=== PATIENT | male | born 1985 | race Two or more races ===

== ENCOUNTER 2024-10-18 16:11 | Emergency (ER) | payer MEDICAID, SELFPAY ==
[2024-10-18 16:30] VITALS: BP 130/81; PULSE 72; RESP 19; TEMP 37.1; O2SAT 97; BMI 26.6
--- NOTE | 2024-10-18 16:40 | XR_ITS ---
Examination: Shoulder,left, 3 views Technique: Shoulder AP internal rotation, AP external rotation, Y view shoulder, 3 views Exam date and time :October 18, 2024 1653 hours INDICATIONS: Injury to the shoulder 2 days ago, shoulder pain FINDINGS: No shoulder fracture or dislocation 2 mm AC joint offset No foreign body IMPRESSION: No fracture 2 mm AC joint offset, consider weightbearing bilateral AC joint views follow-up
--- NOTE | 2024-10-18 17:18 | EDNOTE_ITS ---
<Statement entered by Gertrudis Lee MD - 10/27/24 18:12> As co-signing physician, I was present and available for consult prn. I concur with the plan and care as documented by the midlevel provider. Upper Extremity Injury RME/HPI General Chief Complaint: Extremity Injury, Upper Stated Complaint: INJURY LEFT SHOULDER/NOW PAIN x 2 DAYS Time Seen by Provider: 10/18/24 16:32 Source: patient Arrival date/time: 10/18/24 16:11 This is a 38-year-old male who presents to the emergency department with complaints of anterior left shoulder pain for 2 days. He does endorse he was horse playing with his when he accidentally fell onto the floor landing on his left shoulder since then he has been having pain and unable to raise arm due to pain. Patient did not attempt any interventions or take any OTC medications prior to ED visit. Patient denies any other associated symptoms or aggravating factors. No modifying factors, no radiation, no migration. Denies any other injuries no head or neck pain Mode of arrival: ambulatory Related Data Previous Rx's ?Medication ?Instructions ?Recorded naproxen 500 mg tablet (Naprosyn) 500 mg PO BID PRN pain #30 tabs 01/04/22 ibuprofen 600 mg tablet 600 mg PO TID PRN pain #30 tabs 02/07/23 ibuprofen 800 mg tablet (IBU) 800 mg PO Q8H #20 tabs 10/18/24 Allergies Allergy/AdvReac Type Severity Reaction Status Date / Time pork derived (porcine) AdvReac Severe chest Verified 10/18/24 16:14 tightness Review of Systems Review of Systems Systems Reviewed: All systems reviewed, normal except as documented Narrative Review of Systems: Gen: No fever, no chills, no weight loss EYES: No discharge, no visual changes, no pain HEENT: No ear pain, no congestion, no sore throat PULM: No shortness of breath, no cough, no congestion CV: No chest pain, no dyspnea on exertion, no palpitations GI: No nausea, no vomiting, no diarrhea, no pain, no constipation : No frequency, no urgency,? no dysuria Musc/skel: +joimt pain, no back pain Skin: No rash? ED Exam Narrative Physical exam: General: Sittiing in Exam table in no acute distress, answering questions appropriately HENT: normocephalic, atraumatic, EOMI, PERRLA, moist mucous membranes Chest: chest wall is nontender Cardiac: regular rate and rhythm, normal S1 and S2, no murmurs, rubs, or gallops, capillary refill ?2 seconds Pulmonary: clear to auscultation bilaterally, no wheezing, crackles, or rhonchi Abdominal: active bowel sounds, soft, nontender, nondistended Neuro: A&OX3, CN II-XII intact, sensation grossly intact bilaterally in UE and LE. Skin: no rashes, no ecchymosis Ext: left upper anterior shoulder tenderness to palpation unable to abduct and adduct. no visible shoulder dislocation Course Quality Measures none Orders Category Date Time Status sling [Splint / Immobilizer] STAT Care 10/18/24 17:27 Completed XR shoulder LT min 2V Stat Exams 10/18/24 16:40 Completed Vital Signs Vital signs: Vital Signs Temperature 98.8 F 10/18/24 16:30 Pulse Rate 72 10/18/24 16:30 Respiratory Rate 19 10/18/24 16:30 Blood Pressure 130/81 10/18/24 16:30 Pulse Oximetry (%) 97 10/18/24 16:30 Oxygen Delivery Method Room Air 10/18/24 16:30 Extremity Injury MDM Narrative MDM Narrative:: Patient has an AC separation grade 2 and will be discharged home. There is no skin tenting and distal neurovascular exams are appropriate. Patient has currently been stabilized in the emergency department. Patient has been given a sling to wear. Patient understands that they may require outpatient surgery. Patient?s symptoms not typical for other emergent conditions such as shoulder dislocation, arterial injury. Patient will be discharged with strict return precautions and advice to follow up with primary MD within 24 hours for further evaluation. Patient data External records reviewed:: [facility] previous records Clinical information provided by:: patient Social determinants that could affect healthcare access:: none Patient has the following chronic illnesses:: none How is presenting disease/condition affected by chronic disease/condition?: no chronic disease Evaluation data The following diagnostics were reviewed and interpreted by me:: radiology exam(s) Lab and/or radiology exams considered but not ordered:: none Interpretation Summary: Examination: Shoulder,left, 3 views Technique: Shoulder AP internal rotation, AP external rotation, Y view shoulder, 3 views Exam date and time :October 18, 2024 1653 hours INDICATIONS: Injury to the shoulder 2 days ago, shoulder pain FINDINGS: No shoulder fracture or dislocation 2 mm AC joint offset No foreign body IMPRESSION: No fracture 2 mm AC joint offset, consider weightbearing bilateral AC joint views follow-up Medications / Prescriptions Medications or Prescriptions considered but not ordered:: none Medication administrations:: none Consultations Consultation(s) initiated? (list below): No Diagnosis Upper Extremity Injury Differential Diagnosis: dislocation of shoulder, fracture of humerus and fracture of clavicle Most likely diagnosis given after review of the tests above:: AC separation, type 2 Admission Indicated Admission indicated?: not indicated Explain why admission is indicated or not indicated:: none Admission Request Was there a request for admission?: No Disposition Plan Disposition Plan: Discharge Discharge Attestation Discharge Attestation: The patient and all family members were given an opportunity to ask questions and understood the discharge instructions. Discharge instructions specifically effects, indications for sooner follow up or return to the emergency department, and the expected course of current diagnosis. Patient condition: Stable Discharge Plan Plan Patient Disposition: HOME (Self Care) Patient condition on transfer: Stable Prescriptions/Referrals Prescriptions/Med Rec: New ibuprofen [IBU] 800 mg tablet 800 mg PO Q8H Qty: 20 0RF No Action naproxen [Naprosyn] 500 mg tablet 500 mg PO BID PRN (Reason: pain) Qty: 30 0RF ibuprofen 600 mg tablet 600 mg PO TID PRN (Reason: pain) Qty: 30 0RF Referrals: Tenzin Reyna MD [Primary Care Provider] - In 1 week Problem List Clinical Impression: AC separation, type 2 Patient/Caregiver Discharge Instructions Discharge Activity: activity as tolerated Education Materials: Treatment for Shoulder Separation Additional Instructions: Please continue to use the sling as directed. You will need to see your primary doctor for further care. You might need an MRI of your shoulder which can be done outpatient basis. Orthopedic referral, or physical therapy. Can take [id number] ibuprofen as directed for pain. Return to the emergency department this any worsening symptoms or change in condition. Print Language: Kyrgyz Stand Alone Forms: Deanne Award Info., Patient Portal Info Letter RAY/AISHA Supervising Physician RAY/AIHSA Supervising Physician: Dr. Parmar
== END 2024-10-18 18:55 | disposition home or self-care (01) ==
PROVIDERS: Emergency Provider Emergency Medicine; PCP Family Medicine
DX: S43.102A Unspecified dislocation of left acromioclavicular joint, initial encounter (principal); W19.XXXA Unspecified fall, initial encounter; Y93.83 Activity, rough housing and horseplay
CPT/HCPCS: 73030; 99283

== ENCOUNTER 2024-11-06 22:58 | Emergency (ER) | payer MEDICAID, SELFPAY ==
[2024-11-06 23:15] VITALS: BP 158/84; PULSE 84; RESP 19; TEMP 36.9; O2SAT 98; BMI 25.0
--- NOTE | 2024-11-07 | PD.EDRME ---
Rapid Medical Screening Exam [facility] Arrival date/time: 11/06/24 22:58 38-year-old male presents to the emergency department complaining of low back pain that started earlier today after he was walking to his family member's house. Patient denies any injury or fall. Patient describes pain as a burning pain that radiates down to bilateral lower extremities. Chief Complaint: Extremity Injury, Upper Time Seen by Provider: 11/06/24 23:14 Vital signs: Vital Signs Temperature 98.5 F 11/06/24 23:15 Pulse Rate 84 11/06/24 23:15 Respiratory Rate 19 11/06/24 23:15 Blood Pressure 158/84 H 11/06/24 23:15 Pulse Oximetry (%) 98 11/06/24 23:15 Oxygen Delivery Method Room Air 11/06/24 23:15 Vital signs reviewed by provider: Yes
--- NOTE | 2024-11-07 00:02 | XR_ITS ---
Examination: CT lumbar spine, without contrast. 2-D sagittal reconstructions. 2-D coronal reconstructions. 3-D reconstructions. Date and time of exam:November 07, 2024 at 0022 hours INDICATIONS: Injury to lower back today, lower back pain CTDI: vol (mGy):14.75 DLP: (mGycm):532 Technique: Multiple 1.25 mm axial sections of the lumbar spine without intravenous contrast have been obtained. 2-D sagittal and coronal reconstructions have been obtained. 3-D reconstructions have been obtained. Low dose protocols were performed. One or more of the following dose reduction techniques were used; automated exposure control, adjustment of the mA and/or KV according to patient size, use of iterative reconstruction technique. Findings: Adequate bone density. No lumbar vertebral body fracture No significant lumbar disc narrowing No spondylolisthesis Lumbar pedicles laminae transverse and posterior spinous processes are intact Axial images demonstrate no focal lumbar disc protrusion IMPRESSION: No lumbar fracture Axial images demonstrate no focal lumbar disc protrusion If low back pain persists, recommend MRI lumbar spine without contrast follow-up
[2024-11-07] MEDS: CYCLObenzaPRINE 5 MG TABLET PO (00:30)
[2024-11-07] MEDS: KETOROLAC INJ 60 MG/2 ML VIAL 30 MG IM (00:30)
[2024-11-07 00:43] LABS: Collection Type, Urine Clean Catch; Squamous Epithelial Cell,Urine 0 /hpf (0-5)
[2024-11-07 00:54] LABS: Bacteria,Urine Rare; Bilirubin,Urine Negative (Negative); Blood,Urine 2+ (Negative); Clarity,Urine Clear (Clear/Hazy); Color,Urine Yellow (Lt Yel-Yel); Culture Indicated,Urine Not Indicated; Glucose, Urine Negative (Negative); Ketones,Urine 1+ (Negative); Leukocyte Esterase,Urine Negative (Negative); Nitrite,Urine Negative (Negative); Protein,Urine Trace (Neg - Trace); RBC,Urine 4 /hpf (0-3); Specific Gravity,Urine 1.026 (1.001-1.035); Urobilinogen,Urine Negative mg/dL (0.0-1.0); WBC,Urine 3 /hpf (0-5)
--- NOTE | 2024-11-07 00:58 | PRELIM_ITS ---
CT SCAN OF THE LUMBAR SPINE. November 07, 2024 0021 hours Clinical History: Back pain Technique: Axial sections with sagittal and coronal reformats through the lumbar spine are obtained without intravenous contrast. 3D reconstructed images were also provided. Radiation Dose: Total exam DLP 532 mGy/cm. Comparison: No prior study is available for comparison. Findings: There is minimal retrolisthesis of L1 over L2. The vertebral bodies are unremarkable. There is no fracture. No destructive bony lesion. The pre and paravertebral soft tissues are unremarkable. T12-L1: The disc height is within normal limits. There is no significant disc herniation, central canal or neural foraminal narrowing. The facet joints and ligamentum flavum are within normal limits. L1-L2: The disc height is mildly decreased with small marginal osteophytes. There is no disc herniation, central canal or neural foraminal narrowing. The facet joints and ligamentum flavum are within normal limits. L2-L3 and L3-L4: The disc height is within normal limits. There is no disc herniation, central canal or neural foraminal narrowing. The facet joints and ligamentum flavum are within normal limits. L4-L5 and L5-S1: The disc height is within normal limits. There is no disc herniation, central canal or neural foraminal narrowing. Mild bilateral facet hypertrophy is seen. IMPRESSION: 1. No focal bony destructive pathology identified. 2. No focal disc herniation or significant spinal canal or neural foraminal narrowing identified. 3. Other findings as described above. Suggest clinical correlation and follow up accordingly. Report Electronically Signed By: Yasmany Luzt 11/07/2024 12:58:30 AM [EST]
[2024-11-07 01:01] LABS: Amphetamine/Methamp Scrn,U Negative (Negative); Barbiturate Screen,Urine Negative (Negative); Benzodiazepines Screen,Urine Negative (Negative); Benzoylecgonine Screen, Ur Negative (Negative); Fentanyl Screen,Urine Negative (Negative); Opiate Screen,Urine Negative (Negative); THC Screen,Urine Positive (Negative)
--- NOTE | 2024-11-07 01:38 | PD.EDBACK ---
ED Back Injury Pain RME/HPI General Chief Complaint: Extremity Injury, Upper Stated Complaint: Left shoulder pain, right lower back Time Seen by Provider: 11/06/24 23:14 Source: patient Arrival date/time: 11/06/24 22:58 38-year-old male presents to the emergency department complaining of low back pain that started earlier today after he was walking to his family member's house. Patient denies any injury or fall. Patient describes pain as a burning pain that radiates down to bilateral lower extremities. Mode of arrival: ambulatory Limitations: no limitations RME / HPI RME / HPI Narrative: 11/06/24 22:58 38-year-old male presents to the emergency department complaining of low back pain that started earlier today after he was walking to his family member's house. Patient denies any injury or fall. Patient describes pain as a burning pain that radiates down to bilateral lower extremities. Related Data Previous Rx's ?Medication ?Instructions ?Recorded naproxen 500 mg tablet (Naprosyn) 500 mg PO BID PRN pain #30 tabs 01/04/22 ibuprofen 600 mg tablet 600 mg PO TID PRN pain #30 tabs 02/07/23 ibuprofen 800 mg tablet (IBU) 800 mg PO Q8H #20 tabs 10/18/24 ibuprofen 600 mg tablet 600 mg PO Q8H PRN pain #20 tabs 11/07/24 Allergies Allergy/AdvReac Type Severity Reaction Status Date / Time pork derived (porcine) AdvReac Severe chest Verified 10/18/24 16:14 tightness Review of Systems Review of Systems Systems Reviewed: All systems reviewed, normal except as documented Constitutional Constitutional: Reports system reviewed and no additional complaints, except as documented, Denies body ache(s), Denies chills and Denies fever(s) Eyes Eyes: Reports system reviewed and no additional complaints, except as documented and Denies change in vision ENT Ears, Nose, Mouth, and Throat: Reports system reviewed and no additional complaints, except as documented, Denies disequilibrium, Denies dizziness, Denies sore throat and Denies vertigo Cardiovascular Cardiovascular: Reports system reviewed and no additional complaints, except as documented, Denies chest pain and Denies dyspnea Respiratory Respiratory: Reports system reviewed and no additional complaints, except as documented, Denies chest congestion, Denies cough and Denies dyspnea Gastrointestinal Gastrointestinal: Reports system reviewed and no additional complaints, except as documented, Denies abdominal pain, Denies nausea and Denies vomiting Musculoskeletal Musculoskeletal: Reports system reviewed and no additional complaints, except as documented, Denies abnormal gait, Denies arthralgias and Reports back pain Integumentary/Breasts Skin/Breast: Reports system reviewed and no additional complaints, except as documented, Denies erythema, Denies rash and Denies wounds Neurologic Neurologic: Reports system reviewed and no additional complaints, except as documented, Denies abnormal gait, Denies disequilibrium, Denies dizziness and Denies vertigo Past Medical History Past Medical History CARDIAC: Positive Hypertension; Negative Congestive Heart Failure RESPIRATORY: Positive Asthma; Negative Chronic Obstructive Pulmonary Disease (COPD) GENITOURINARY: Negative Renal Disease ENDOCRINE: Negative Diabetes Mellitus Type 1 or Diabetes Mellitus Type 2 Social History SMOKING STATUS: Never smoker SUBSTANCE USE: does not use ED Exam General Limitations: Present no limitations General appearance: Present alert and in no apparent distress Head Head exam: Present atraumatic Eye Eye exam: Present normal appearance, PERRL and EOMI ENT ENT exam: Present normal exam, normal oropharynx and mucous membranes moist Neck Neck exam: Present normal inspection, full ROM and trachea midline Chest Chest inspection: Present normal inspection and symmetric chest wall rise Respiratory Respiratory exam: Present normal lung sounds bilaterally Cardiovascular Cardiovascular exam: Present regular rate, normal rhythm and normal heart sounds Abdominal Exam Abdominal exam: Present soft and normal bowel sounds Extremities Exam Extremities exam: Present normal inspection and full ROM Back Exam Back exam: Present normal inspection, full ROM, straight leg raise (R) and straight leg raise (L); Absent CVA tenderness (R) or CVA tenderness (L) Neurological Exam Neurological exam: Present alert, oriented X3 and CN II-XII intact Psychiatric Psychiatric exam: Present normal affect and normal mood Skin Skin exam: Present warm, dry, intact and normal color Course Quality Measures none Orders Category Date Time Status CT lumbar spine wo con Stat Exams 11/07/24 00:02 Taken Drug Screen,Urine Stat Lab 11/07/24 00:28 Completed Urinalysis, C/S if Indicated Stat Lab 11/07/24 00:28 Completed CYCLObenzaPRINE [Flexeril] Med 11/07/24 00:02 Discontinued 5 mg PO X1 ONE Ketorolac Inj [Toradol Inj] Med 11/07/24 00:02 Discontinued 30 mg IM X1 ONE Vital Signs Vital signs: Vital Signs Temperature 98.5 F 02/04/25 23:15 Pulse Rate 84 11/06/24 23:15 Respiratory Rate 19 11/06/24 23:15 Blood Pressure 158/84 H 11/06/24 23:15 Pulse Oximetry (%) 98 11/06/24 23:15 Oxygen Delivery Method Room Air 11/06/24 23:15 98% room air within normal limits Back Pain / Injury MDM Narrative MDM Narrative:: 38-year-old male presents to the emergency department complaining of low back pain that started earlier today after he was walking to his family member's house. Patient denies any injury or fall. Patient describes pain as a burning pain that radiates down to bilateral lower extremities. Patient denies any fever, chills, dysuria, bowel or bladder dysfunction, saddle anesthesia, or any other associated symptom. Patient reported shoulder pain to triage nurse but did not report any pain to shoulder or any exam patient had full active range of motion to bilateral upper extremities. CT scan of lumbar was unremarkable. Urinalysis was also unremarkable. Patient reported improvement in symptoms after given pain medication. Patient stable for discharge. Follow-up with primary care provider return to emergency department for any worsening symptoms or as needed. Patient data External records reviewed:: [facility] previous records Clinical information provided by:: patient Social determinants that could affect healthcare access:: none Patient has the following chronic illnesses:: See chart How is presenting disease/condition affected by chronic disease/condition?: uneffected by Evaluation data The following diagnostics were reviewed and interpreted by me:: radiology exam(s) Lab and/or radiology exams considered but not ordered:: Ordered Interpretation Summary: Interpreted by me Medications / Prescriptions Medications or Prescriptions considered but not ordered:: Order Medication administrations:: Medication Administration History Discontinued Medications Cyclobenzaprine HCl (Cyclobenzaprine 5 Mg Tablet) 5 mg PO X1 ONE Stop: 11/07/24 00:03 Last Admin: 11/07/24 00:30 Dose: 5 mg Documented By: EE Ketorolac Tromethamine (Ketorolac Inj 60 Mg/2 Ml Vial) 30 mg IM X1 ONE Stop: 11/07/24 00:03 Last Admin: 11/07/24 00:30 Dose: 30 mg Documented By: ANNALEE Comments: Given Consultations Consultation(s) initiated? (list below): No Diagnosis Differential diagnosis back pain/injury: lumbar radiculopathy, sciatica, strain of lumbar region, renal colic, pyelonephritis, thoracic back pain, AAA and discitis Most likely diagnosis given after review of the tests above:: Back pain Admission Indicated Admission indicated?: not indicated Admission Request Was there a request for admission?: No Disposition Plan Disposition Plan: Discharge Discharge Attestation Discharge Attestation: The patient and all family members were given an opportunity to ask questions and understood the discharge instructions. Discharge instructions specifically effects, indications for sooner follow up or return to the emergency department, and the expected course of current diagnosis. Patient condition: Stable Discharge Plan Plan Patient Disposition: HOME (Self Care) Disposition Comment: Stable Prescriptions/Referrals Prescriptions/Med Rec: New ibuprofen 600 mg tablet 600 mg PO Q8H PRN (Reason: pain) Qty: 20 0RF No Action naproxen [Naprosyn] 500 mg tablet 500 mg PO BID PRN (Reason: pain) Qty: 30 0RF ibuprofen 600 mg tablet 600 mg PO TID PRN (Reason: pain) Qty: 30 0RF ibuprofen [IBU] 800 mg tablet 800 mg PO Q8H Qty: 20 0RF Referrals: Tenzin Reyna MD [Primary Care Provider] - In 1 week Problem List Clinical Impression: Back pain Patient/Caregiver Discharge Instructions Discharge Activity: activity as tolerated Education Materials: Back Safety: Bending, Anatomy of a Normal Spine Additional Instructions: Drink plenty of fluids and take Tylenol or ibuprofen as needed for pain. Follow-up with primary care provider and request referral to physical therapy or MRI of lower back if symptoms persist. Return to emergency department for any worsening symptoms or as needed. Print Language: Kinyarwanda Stand Alone Forms: Deanne Award Info., Patient Portal Info Letter PA/ANODE REBUILDER Supervising Physician PA/ANODE REBUILDER Supervising Physician: Dr. Blank
== END 2024-11-07 01:51 | disposition home or self-care (01) ==
PROVIDERS: Emergency Provider Emergency Medicine; PCP Family Medicine
DX: M54.50 Low back pain, unspecified (principal)
CPT/HCPCS: 72131; 80307; 81001; 96372; 99284; J1885; A9270